=== PATIENT | female | born 1960 | race Caucasian/White ===

== ENCOUNTER 2024-06-16 11:46 | Emergency (ER) | payer OTHER ==
[~2024-06-16] VITALS: Ht 175.3 cm; Wt 90.7 kg
[~2024-06-16 11:46] MED LIST: ACETAMINOPHEN-1 EAC4 PO; ALBUTEROL SULF8.5 GM IH; ALBUTEROL0.63 MG/3 INH; ARMOUR THYROID60 MG PO; CARAFATE1 GM PO; CIPRO500 MG PO; CITRACAL + D M1 EACH PO; CITRACAL + D31 EACH PO; CYCLOBENZAPRINE10 MG PO; DIFLUCAN100 MG; DOCUSATE SODIU100 MG PO; ETODOLAC500 M1 PO; ETODOLAC500 MG PO; FAMOTIDINE20 MG PO; FLEXERIL10 MG PO; FLOMAX0.4 MG PO; GLUCOSAMINE CH1 EAC2 PO; GLUCOSAMINE1000 MG PO; HYDROXYZINE HCL25 MG PO; LEVOCETIRIZINE D5 MG PO; MACROBID 100 M100 MG PO; MUCINEX DM ER1 EACH PO; NORCO 10-325 T1 EACH; OMEGA 3 KRILL PO; OMEGA-31000 MG PO; PANTOPRAZOLE SO40 MG PO; PRIMADOPHILUS PO; QVAR7.3 G1 IH; RAPAFLO8 MG PO; RHODIOLA PO; ROBAXIN-750750 MG PO; SPIRIVA18 MCG INH; SYMBICORT 16010.2 GM PO; TURMERIC PO; URIBEL CAPSULE1 EACH PO; VITAMIN D32000 UNI2 PO; VITAMIN D32000 UNIT PO; XOPENEX CO1.25 MG/0. INH; XOPENEX HFA15 GM IH; XYZAL5 MG PO; Z.0.COLACE100 MG PO; Z.0.FISH OIL300 MG PO; Z.0.SYNTHROID150 MCG PO; Z.0.XOPENEX1.25 MG/3; Z.0.XYZAL5 MG PO; [UNRECOGNIZED DRUG - OTHER]
[2024-06-16 12:05] VITALS: TEMP 98
[2024-06-16 12:55] VITALS: PULSE 74; RESP 18
[2024-06-16 13:06] LABS: BASOPHILS # (AUTO) 0.1 (0.0-0.1); EOSINOPHILS # (AUTO) 0.1 (0.0-0.4); EOSINOPHILS % 0.8 % (0.0-6.0); HEMATOCRIT 45.2 % (34.2-44.1); HEMOGLOBIN 14.1 g/dL (12.0-16.0); LYMPHOCYTES # (AUTO) 1.7 (1.0-3.2); LYMPHOCYTES % 28.3 % (18.0-39.1); MEAN CORPUSCULAR HEMOGLOBIN 28.7 pg (28-32); MEAN CORPUSCULAR HGB CONC 31.2 g/dL (31-35); MEAN CORPUSCULAR VOLUME 92.1 fL (81-99); MONOCYTES # (AUTO) 0.4 (0.2-0.8); MONOCYTES % 7.2 % (4.4-11.3); NEUTROPHILS # (AUTO) 3.8 (2.1-6.9); NEUTROPHILS % 62.4 % (38.7-80.0); PLATELET COUNT 246 x10e3/uL (140-360); RED BLOOD COUNT 4.91 x10e6/uL (3.6-5.1); RED CELL DISTRIBUTION WIDTH 13.1 % (11.7-14.4); WHITE BLOOD COUNT 6.01 x10e3/uL (4.8-10.8)
[2024-06-16 13:19] LABS: INR 0.94; PROTHROMBIN TIME 13.1 seconds (11.9-14.5)
[2024-06-16 13:20] LABS: PARTIAL THROMBOPLASTIN TIME 33.2 seconds (23.8-35.5)
[2024-06-16 13:32] LABS: ALANINE AMINOTRANSFERASE 18 IU/L (0-55); ALBUMIN 3.6 g/dL (3.5-5.0); ALBUMIN/GLOBULIN RATIO 1.1 (0.8-2.0); ALKALINE PHOSPHATASE 97 IU/L (40-150); BILIRUBIN,TOTAL 0.6 mg/dL (0.2-1.2); BLOOD UREA NITROGEN 14 mg/dL (7-26); BUN/CREATININE RATIO 18 (6-25); CALCIUM 9.6 mg/dL (8.4-10.2); CARBON DIOXIDE 25 mmol/L (22-29); CHLORIDE 105 mmol/L (98-107); CREATINE KINASE 117 IU/L (29-168); CREATININE, SERUM 0.77 mg/dL (0.57-1.11); EST GLOMERULAR FILTRATION RATE 86 ML/MIN (>=60); GLUCOSE 99 mg/dL (74-118); MAGNESIUM 2.1 MG/DL (1.3-2.1); SODIUM 139 mmol/L (136-145); TOTAL PROTEIN 6.8 g/dL (6.5-8.1)
[2024-06-16] MEDS: Morphine 4mg INJECTION 4 MG/ML INJ IV STA (13:51)
[2024-06-16] MEDS: SODIUM CHLORIDE 0.9% 1000ML 1,000 ML IV STA (13:52)
[2024-06-16 13:53] LABS: TROPONIN I < 0.05 ng/mL (0.0-0.40)
[2024-06-16] MEDS: ONDANSETRON HCL INJ 2MG/ML 2ML 2 MG/ML VIAL IV STA (13:53)
[2024-06-16 14:46] VITALS: PULSE 82; RESP 18; O2SAT 97
[2024-06-16] MEDS: ALBUTEROL/IPRATROPIUM 3 ML NEB NEB ONE (14:47)
[2024-06-16 14:48] VITALS: PULSE 82; RESP 18; O2SAT 97
[2024-06-16] MEDS: ACETAMIN/BUTALBITAL/CAFFEINE TAB PO ONE (15:27)
[2024-06-16] MEDS: PROMETHAZINE 12.5MG/ NACL 0.9% 12.5 MG/50 ML BAG IV ONE (15:28)
[2024-06-16] MEDS: KETOROLAC TROMETHAMINE 30 MG/ML VIAL IV ONE (15:28)
[2024-06-16] MEDS ORDERED: ONDANSETRON ODT4 MG PO (16:15)
[2024-06-16] MEDS ORDERED: FIORICET 50-301 EACH PO (16:15)
[2024-06-16] MEDS ORDERED: MEDROL4 M2 PO (16:17)
== END 2024-06-16 16:41 | disposition home or self-care (01) ==
LOC: MERGE 11:46 → ER 12:24
DX: R51.9 Headache, unspecified (principal); J40 Bronchitis, not specified as acute or chronic; R11.2 Nausea with vomiting, unspecified; E03.9 Hypothyroidism, unspecified; F41.9 Anxiety disorder, unspecified; Z11.52 Encounter for screening for COVID-19
CPT/HCPCS: 36415; 70450; 71045; 80053; 82550; 83735; 83880; 84484; 85025; 85610; 85730; 87400; 93005; 94640; 94799; 99284; J0456; J0696; J1885; J2270; J2405; J2550; J7030; J7050; U0002